=== PATIENT | female | born 1930 | race Caucasian/White ===

== ENCOUNTER 2017-04-19 08:23 | Inpatient (IN) | payer MEDICARE, OTHER ==
[~2017-04-19] VITALS: Ht 157.5 cm; Wt 64.1 kg
[~2017-04-19 08:23] MED LIST: /TIOT18INH INH; ALBU83IN IN; ASPI81TA83 OR; ATROVENT0.02% INH; FISH1000 PO; MAALSUS OR; MILKSUS OR; MIRALEX PO; MULTIVIT PO; SENN8.6T5 OR; TRAM50TA2 OR; TYL RE; [UNRECOGNIZED DRUG - REMARK] PO; aleve PO
[2017-04-19] MEDS ORDERED: NS 500 ML IV ONE (09:15)
[2017-04-19] MEDS ORDERED: ONDANSETRON 4MG/2ML VIAL (J2405) IV ONE (09:15)
[2017-04-19] MEDS ORDERED: methylPREDNISolone INJ 125 MG/2 ML VIAL (J2930) IV ONE (09:15)
[2017-04-19] MEDS ORDERED: IPRATROPIUM 0.5MG/ALBUTEROL 2.5MG INH SOL UD 3ML (DUONEB)(J7620) NEB ONE (09:15)
[2017-04-19] MEDS ORDERED: ALBUTEROL SULFATE 2.5 MG/0.5 ML INH NEB SOLN INH ONE (09:15)
[2017-04-19] MEDS ORDERED: CHLO125TA (09:17)
[2017-04-19] MEDS ORDERED: INCR1INH (09:17)
[2017-04-19 09:38] LABS: ABG BASE EXCESS 1.7 (-2.0-2.0); ABG HCO3 28.3 MEQ/L (22.0-26.0); ABG PARTIAL PRESSURE CO2 51.4 mmHg (35.0-45.0); ABG PARTIAL PRESSURE O2 112.3 mmHg (75.0-100.0); ABG TOTAL CO2 29.9 MEQ/L (23.0-31.0); ABG pH (ARTERIAL) 7.359 UNITS (7.350-7.450)
[2017-04-19 09:59] LABS: BASO # 0.1 K/mm3 (0.0-0.2); BASO % 0.7 % (0.0-1.0); EOS # 0.1 K/mm3 (0.0-0.50); EOS % 0.7 % (0.0-3.0); LARGE UNSTAINED CELL # 0.2 K/mm3 (0.0-0.4); LARGE UNSTAINED CELL % 1.3 % (0.0-4.0); LYMPH # 1.7 K/mm3 (1.5-4.5); LYMPH % 15.5 % (24.0-44.0); MEAN CORPUSCULAR HEMOGLOBIN 33.4 pg (27.0-33.0); MEAN CORPUSCULAR HGB CONC 33.9 g/dl (32.0-36.5); MEAN CORPUSCULAR VOLUME 98.7 fl (80.0-96.0); MONO # 0.6 K/mm3 (0.0-0.8); MONO % 5.2 % (0.0-5.0); NEUTROPHILS # 8.4 K/mm3 (1.8-7.7); NEUTROPHILS % 76.6 % (36.0-66.0); PLATELET COUNT, AUTOMATED 192 k/mm3 (150-450); RED CELL DISTRIBUTION WIDTH 12.6 % (11.5-14.5)
[2017-04-19 10:21] LABS: INR 0.94
--- NOTE | 2017-04-19 10:21 | REP ---
AP portable chest: 04/19/2017 at 9:45 a.m. Comparison PA chest with left rib series 12/19/2015, chest x-ray 08/22/2005. Clinical history: Dyspnea and cough. Lungs are hyperinflated with changes of COPD. There is cardiomegaly, bilateral effusions and basilar patchy atelectasis or infiltrates left greater than right and left diaphragm is not well seen because of that consolidative change and/or effusion. Pulmonary arteries are prominent centrally consistent with some pulmonary hypertension. There is venous hypertension but no juan edema. Calcified tortuous aorta unchanged. Airway intact. Bones demineralized. Impression: 1. Cardiomegaly with venous hypertension and bilateral effusions. There is no juan edema. The fibrosis may obscure early interstitial edema. 2. Bibasilar patchy atelectasis or infiltrates left greater than right. Signed by Cornel Palencia MD 04/19/2017 09:16 P
[2017-04-19] MEDS ORDERED: COLA100C5 PO (10:23)
[2017-04-19] MEDS ORDERED: PROAAER10 INH (10:23)
[2017-04-19] MEDS ORDERED: INCR1INH INH (10:23)
[2017-04-19] MEDS ORDERED: ASPI1TAB PO (10:23)
[2017-04-19] MEDS ORDERED: ACET1TAB17 PO (10:23)
[2017-04-19] MEDS ORDERED: CHLO25TA PO (10:23)
[2017-04-19] MEDS ORDERED: VITMTA PO (10:23)
[2017-04-19 10:24] LABS: ALBUMIN 3.5 GM/DL (3.2-5.2); ALBUMIN/GLOBULIN RATIO 1.13 (1.00-1.93); ALKALINE PHOSPHATASE 93 U/L (45-117); ALT/SGPT 14 U/L (12-78); AMYLASE 24 U/L (25-115); ANION GAP 11 MEQ/L (8-16); AST/SGOT 16 U/L (15-37); BILIRUBIN,DIRECT 0.1 MG/DL (0.0-0.2); BILIRUBIN,TOTAL 0.4 MG/DL (0.2-1.0); BLOOD UREA NITROGEN 19 MG/DL (7-18); CALCIUM LEVEL 9.6 MG/DL (8.8-10.2); CARBON DIOXIDE LEVEL 29 MEQ/L (21-32); CHLORIDE LEVEL 102 MEQ/L (98-107); GLOMERULAR FILTRATION RATE > 60.0 (>32); GLUCOSE, FASTING 154 MG/DL (83-110); POTASSIUM SERUM 3.2 MEQ/L (3.5-5.1); SODIUM LEVEL 142 MEQ/L (136-145); TOTAL PROTEIN 6.6 GM/DL (6.4-8.2)
[2017-04-19] MEDS ORDERED: AZITHROMYCIN INJ 500 MG, VIAL MATE ADAPTER 1 EACH in D5W 250 ML IV ONE (10:30)
[2017-04-19] MEDS ORDERED: cefTRIAXone SOD 1 GM in D5W MINI-BAG PLUS 50 ML IV ONE (10:30)
[2017-04-19] MEDS ORDERED: ISOVUE-370 76% 100ML VIAL (Q9967) As Ordered ONE (10:54)
--- NOTE | 2017-04-19 11:47 | REP ---
CT of the chest CT pulmonary angio protocol with IV contrast: There are no emboli in the pulmonary trunk or in the central pulmonary arteries. There are no emboli in the lobe or segment branches. There is dependent atelectasis in the posterior lung guzmán bilaterally with the patient supine on the scanning table para There is a mosaic pattern in the lung guzmán bilaterally. Numerous small bulla are scattered throughout the lung guzmán bilaterally compatible with bullous emphysema. No definite focal infiltrates are identified. No pleural effusions are identified. The thoracic aorta is unremarkable except for occasional calcified atheroma. There is no hilar adenopathy. There is no axillary adenopathy. Cardiac size is enlarged. There is no pericardial effusion. Within the visualized upper abdomen there is a gallbladder calculus. There is a renal cortical cyst of the left renal upper pole. Impression: There are no pulmonary emboli. There are no definite focal infiltrates or effusions. There is dependent atelectasis in the posterior lung guzmán. There are numerous bulla throughout the lung guzmán bilaterally. There is a mosaic pattern in the lung guzmán compatible with chronic lung disease. There is cardiomegaly without pericardial effusion. There is a 12 mm lung nodule in the lateral segment of the right middle lobe , unchanged from 12/02/2005, likely a granuloma. Signed by Aravind Garcia MD 04/19/2017 11:38 A
--- NOTE | 2017-04-19 11:51 | REP ---
CT ABDOMEN PELVIS WITH IV CONTRAST: 04/19/2017 CLINICAL HISTORY: Abdominal pain. TECHNIQUE: Bolus of 1 mL Isovue 370 and scanning through the abdomen and pelvis with coronal and sagittal reconstructions provided. CT ABDOMEN: The lung bases show dependent atelectasis and fibrosis. Small nodules could certainly be obscured posteriorly and there is a tiny solid nodule in the anterior right base up to 7 mm on image 5. The heart is enlarged with left atrial and ventricular enlargement but there is no pericardial thickening or effusion. There is a small hiatal hernia. There is some coronary artery calcifications and descending thoracic aortic calcification without aneurysm or dissection. There is no hepatomegaly with slight elevation of the right diaphragm. There is no splenomegaly or focal splenic lesion. No hepatic biliary dilatation. Gallbladder shows a small calcification dependent portion measuring about 4.6 mm representing a gallstone. No biliary dilatation. Visualized pancreas shows no mass or ductal dilatation. There is some fatty atrophy of the pancreatic head region and the adrenal glands without mass. The kidneys show exophytic cysts off both upper poles with lobation. An extrarenal pelvis is noted. Calcifications in the lower pole on the left are noted and small; the larger about 4 mm. No hydronephrosis or hydroureter. Extrarenal pelves are seen. Small bowel loops grossly intact. Colon shows collapse on the right and transverse colon to the splenic flexure and this may reflect some mild colitis with thickening of the wall. I do not see diverticulosis or diverticulitis in the abdominal portion of right and transverse colon. The left colon does not show significant change of the wall or evidence for colitis. A few scattered diverticula without diverticulitis noted. Small bowel loops grossly intact. Lung window review of all CT slices shows no perforation or abscess. Abdominal aorta shows an infrarenal abdominal aneurysm. There is circumferential eccentric plaque. Maximum AP diameter 3.8 cm. There is no evidence of an aneurysm leak. There are calcifications in both proximal renal arteries and at the origins of the SMA and celiac axis. Lung window review shows no perforation or free air in the abdomen or pelvis. The bone windows show degenerative disc change and vacuum phenomena at L4-5 and L5-S1 with lesser degenerative changes in the other lumbar and lower thoracic levels. There is no spondylolysis or spondylolisthesis. Visualized ribs intact. CT PELVIS: The patient is status post ORIF right hip with a threaded femoral nail not extending beyond the articular surface of the femoral head . Advanced degenerative changes of the hips with narrowing of the joint space, rim osteophytes and the change is greater right than left. However, no acute fracture of the hips. The pelvis along the sacrum are grossly intact. Bladder well filled and without wall thickening, stone or mass. There is no ventral or inguinal hernia nor pathologic sized inguinal adenopathy. Small bowel loops grossly intact. The distal left colon, sigmoid and rectum are grossly intact without acute finding. IMPRESSION: 1. There is about a 4.6 mm calcified gallstone in the dependent gallbladder without biliary dilatation, common duct dilatation or inflammatory change of the pancreas. 2. Liver, spleen and adrenal glands along the pancreas without acute finding. There is fatty atrophy of the pancreatic head. 3. No biliary dilatation or ascites. I see no pathologic sized periaortic or retroperitoneal lymphadenopathy. 4. 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 No evidence of leak or dissection. There is heavy atherosclerotic calcifications. 5. Collapse with wall thickening of the right and transverse colon that may reflect some colitis. I do not see diverticulitis in the left colon and rectosigmoid and the kidneys. 6. The liver, spleen and adrenal glands are unremarkable. No pelvic mass. Uterus absent. Signed by Cornel Palencia MD 04/19/2017 09:18 P
[2017-04-19] MEDS ORDERED: ONDANSETRON 4MG/2ML VIAL (J2405) IV PRN (14:30)
[2017-04-19] MEDS ORDERED: LevoFLOXacin IV 500 MG in APPROPRIATE DILUENT 1 EA IV ONE (15:00)
[2017-04-19 15:15] VITALS: BP 132/70
[2017-04-19] MEDS: ASPIRIN 81 MG CHEW TABLET PO SCH (16:05)
[2017-04-19] MEDS: POTASSIUM CHLORIDE INJ 40 MEQ in NS 0.45% 1,000 ML IV SCH (17:22)
[2017-04-19 18:00] VITALS: BP 141/67
--- NOTE | 2017-04-19 18:26 | ECGEPIP ---
Stationary ECG Study [facility] - ED Test Date: 2017-04-19 Pat Name: February Department: Room: - Gender: F Medical Technicians: katya : 1930 Requested By: Raymond Hung Order Number: [id number] Reading MD: Billy Fernando Measurements Intervals [place] Rate: 82 P: 42 MO: 252 QRS: -26 QRSD: 105 T: 70 QT: 441 QTc: 516 Interpretive Statements SINUS RHYTHM WITH FIRST DEGREE AV BLOCK BORDERLINE LEFT AXIS DEVIATION MINIMAL VOLTAGE CRITERIA FOR LVH, CONSIDER NORMAL VARIANT ST DEVIATION AND MODERATE T-WAVE ABNORMALITY, CONSIDER ANTEROLATERAL ISCHEMIA SIMILAR TO 09/17/13 Electronically Signed On 04-19-2017 18:26:36 EDT by Billy Fernando
[2017-04-19] MEDS ORDERED: KCL 10MEQ IN 100ML SWI (KRUN) 10 MEQ in APPROPRIATE DILUENT 1 EA IV ONE ×4 (20:15→21:15)
[2017-04-19] MEDS: ENOXAPARIN 30 MG/0.3 ML SYR (J1650) SC SCH (20:30)
[2017-04-19] MEDS: ACETAMINOPHEN 325 MG TAB PO PRN (20:30)
[2017-04-19] MEDS: IPRATROPIUM 0.5MG/ALBUTEROL 2.5MG INH SOL UD 3ML (DUONEB)(J7620) NEB SCH (20:37)
[2017-04-19 22:00] VITALS: BP 132/63
[2017-04-20 02:00] VITALS: BP 134/66
[2017-04-20] MEDS: POTASSIUM CHLORIDE INJ 40 MEQ in NS 0.45% 1,000 ML IV SCH ×2 (04:32→08:29)
--- NOTE | 2017-04-20 05:07 | HPE ---
DATE OF ADMISSION: 04/19/2017 CHIEF COMPLAINT: Increased work of breathing times 1 day. HISTORY OF PRESENT ILLNESS: This is an 87-year-old white female patient of Dr. Nicho Koch who presents at [facility] ([facility]) Emergency Room (ER), who, upon awaking this morning, had a productive cough with purulent sputum with increased dyspnea. The cough was persistent to the point that it seems that she had posttussive emesis with possible aspiration; although, upon further questioning, the patient states she has not coughed again in the last 2 hours and her dyspnea is now back to baseline. She denies any fevers, chills. She denies any chest pain or palpitations or orthopnea, paroxysmal nocturnal dyspnea (PND), or increased edema. She denies any abdominal pain, nausea, nor vomiting. She has been nothing by mouth since arriving. She states she is hungry and would like to eat. She denies any diarrhea. She denies any recent sick contacts nor recent change of medications. PAST MEDICAL HISTORY: Hospitalizations: None recently. Illnesses: 1. Chronic obstructive pulmonary disease (COPD). 2. Osteopenia. 3. Lumbar degenerative joint disease (DJD). 4. 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 5. Constipation, chronic. 6. Mild cognitive impairment. 7. Hypertension. MEDICATIONS: Per [employer] (eCW) confirmed with patient are: - Mucinex 600 mg twice a day as needed - Colace 100 mg daily as needed - acetaminophen 325 mg every 6 hours as needed - ProAir two puffs every 4 hours as needed - Incruse Ellipta one puff daily - aspirin 81 mg by mouth daily - chlorthalidone 12.5 mg daily - multivitamin one tablet by mouth daily ALLERGIES: No known drug allergies. SURGICAL HISTORY: Status post right open reduction and internal fixation (ORIF), hysterectomy, cataract repair. SOCIAL HISTORY: Patient is a resident of [facility]. She is DO NOT RESUSCITATE/DO NOT INTUBATE per Medical Orders for Life-Sustaining Treatment (MOLST) from the chart signed by the patient and Roya Toscano. REVIEW OF SYSTEMS: CONSTITUTIONAL: No weight loss, night sweats. VISION: No diplopia, scotoma. EAR, NOSE, AND THROAT (ENT): No epistaxis or hoarseness. CARDIOVASCULAR: No chest pain nor palpitations. PULMONARY: Dyspnea as above. GASTROINTESTINAL (GI): No odynophagia, melena, hematochezia. GENITOURINARY (): No dysuria, hematuria. DERMATOLOGIC: No rash. ENDOCRINE: No polydipsia or pyuria. RHEUMATOLOGIC: No joint or tendon pain. NEUROLOGIC: No paresthesia or weakness. PHYSICAL EXAM: 98.5, 85, 18, 122/82, 98% on 3 liters nasal cannula. GENERAL: Patient is alert and oriented times two, in no acute distress. HEAD: Is normocephalic, atraumatic. EARS: Tympanic membranes (TMs) are normal bilaterally. EYES: Clear conjunctivae. NOSE: Without discharge. THROAT: Clear oropharynx. NECK: Without adenopathy or thyromegaly. CARDIOVASCULAR: Is regular rate and rhythm with 2/6 systolic ejection murmur, loudest at upper left sternal border, and no jugular venous distension (JVD). RESPIRATORY: Has decreased breath sounds bilateral. Coarse bibasilar rales, louder in right base. ABDOMEN: Nontender, nondistended. Positive bowel sounds. No hepatosplenomegaly. EXTREMITIES: No cyanosis, clubbing, edema. NEUROLOGIC: Is nonfocal. INVESTIGATIONS: Show WBC of 11.0, hemoglobin and hematocrit of 16.7 and 49.4, platelets of 192. PT, PTT of 13 and 26, respectively. Sodium 142, potassium 3.2, bicarbonate of 29, BUN 19, creatine of 0.8, lactic acid 1.5. AST, ALT, alkaline phosphatase of 16, 14, 93, respectively. CK of 45, troponin I of 0.02. Amylase, lipase of 24 and 67, respectively. BNP of 174. Urinalysis (UA) showed 8 WBCs, 3+ bacteria. CTA of the chest shows no pulmonary embolism (PE), no definitive infiltrate, numerous bilateral bullae, cardiomegaly without pericardial effusion. CT abdomen and pelvis shows a 4.6 mm calcified gallstone in dependent gallbladder without biliary dilatation or common bile duct (CBD) dilatation nor pancreatic inflammation, abdominal aortic aneurysm (AAA) of 3.9 cm, possible right transverse colon colitis. EKG 04/19/2017 at 0925 hours shows normal sinus rhythm at 82 beats per minute, first-degree atrioventricular (AV) block, borderline left axis deviation (LAD), LVH with anterior lateral repolarization abnormalities more pronounced compared with most recent EKG from 09/17/2013. ASSESSMENT: This is an 87-year-old white female with increased dyspnea, productive cough, purulent sputum with probable posttussive emesis +/- aspiration pneumonia with abnormal EKG and hypokalemia. PLAN: 1. Pulmonary. Will admit the patient to [facility] medical/surgical bed. Place on Levaquin, renally dosed, for possible aspiration pneumonia. Will start DuoNebs every 6 hours straight given she is on Anoro Ellipta at home and titrate oxygen to keep saturations mid 90s given this is her baseline on no oxygen. 2. Fluids, electrolytes, and nutrition (FEN). Would advance the patient's diet to clears. Will give potassium (K) runs times two. Place on IV fluids at maintenance. Advance her diet as tolerated. 3. Cardiovascular. Will hold the patient's home dose of chlorthalidone given her hypokalemia and normal pressures, probable mild dehydration. Will repeat EKG and electrolytes in the morning. 4. GI. The patient's abdomen is nontender. She wishes to attempt advancing her diet despite the fact that she has a gallstone. I feel this is most likely asymptomatic and chronic. Will follow closely. 5. Deep venous thrombosis (DVT) prophylaxis. Will place on renal-dosed Lovenox. DISPOSITION: Will honor patient's home DO NOT RESUSCITATE/DO NOT INTUBATE. Will consult physical therapy (PT) for evaluation and treatment.
[2017-04-20 06:00] VITALS: BP 140/66
[2017-04-20 06:10] LABS: EOS % 0.1 % (0.0-3.0); LARGE UNSTAINED CELL # 0.1 K/mm3 (0.0-0.4); LARGE UNSTAINED CELL % 0.8 % (0.0-4.0); LYMPH # 1.2 K/mm3 (1.5-4.5); LYMPH % 9.9 % (24.0-44.0); MEAN CORPUSCULAR HEMOGLOBIN 33.5 pg (27.0-33.0); MEAN CORPUSCULAR HGB CONC 33.7 g/dl (32.0-36.5); MEAN CORPUSCULAR VOLUME 99.3 fl (80.0-96.0); MONO # 0.6 K/mm3 (0.0-0.8); MONO % 4.9 % (0.0-5.0); NEUTROPHILS # 9.6 K/mm3 (1.8-7.7); NEUTROPHILS % 84.3 % (36.0-66.0); PLATELET COUNT, AUTOMATED 177 k/mm3 (150-450); RED CELL DISTRIBUTION WIDTH 12.9 % (11.5-14.5); WHITE BLOOD COUNT 11.4 K/mm3 (4.0-10.0)
[2017-04-20 06:30] LABS: ALBUMIN 2.8 GM/DL (3.2-5.2); ALKALINE PHOSPHATASE 68 U/L (45-117); ALT/SGPT 12 U/L (12-78); ANION GAP 8 MEQ/L (8-16); AST/SGOT 16 U/L (15-37); BILIRUBIN,TOTAL 0.3 MG/DL (0.2-1.0); BLOOD UREA NITROGEN 17 MG/DL (7-18); CALCIUM LEVEL 8.4 MG/DL (8.8-10.2); CARBON DIOXIDE LEVEL 29 MEQ/L (21-32); CHLORIDE LEVEL 100 MEQ/L (98-107); CREATININE FOR GFR 0.76 MG/DL (0.55-1.02); GLOMERULAR FILTRATION RATE > 60.0 (>32); GLUCOSE, FASTING 128 MG/DL (83-110); MAGNESIUM LEVEL 1.6 MG/DL (1.8-2.4); POTASSIUM SERUM 4.2 MEQ/L (3.5-5.1); SODIUM LEVEL 137 MEQ/L (136-145); TOTAL PROTEIN 5.9 GM/DL (6.4-8.2)
[2017-04-20] MEDS: IPRATROPIUM 0.5MG/ALBUTEROL 2.5MG INH SOL UD 3ML (DUONEB)(J7620) NEB SCH ×4 (07:45→20:53)
[2017-04-20] MEDS: ASPIRIN 81 MG CHEW TABLET PO SCH (08:28)
[2017-04-20 10:00] VITALS: BP 126/65
--- NOTE | 2017-04-20 11:50 | IPNPDOC ---
Subjective Date Seen The patient was seen on 04/20/17. Subjective Chief Complaint/HPI The patient is a 87-year-old female admitted with a reason for visit of Pneumonia. Events since last encounter Pt States that she is really feeling quite well this morning. She states that her breathing is close to baseline. She denies CP. She has no new concerns. 04/20 PT safe to return to [place] General: Denies: Fatigue Constitutional: Denies: Chills, Fever Pulmonary: Denies: Dyspnea, Cough Cardiovascular: Denies: Chest Pain, Palpitations Gastrointestinal: Denies: Nausea, Vomiting, Diarrhea Psych: Reports: Mood Normal Objective Physical Examination General Exam: Positive: Alert, No Acute Distress ENT Exam: Positive: Mucous membr. moist/pink Neck Exam: Positive: Supple, Negative: JVD Chest Exam: Positive: Clear to auscultation, Diminished Heart Exam: Positive: Rate Normal, Normal S1, Normal S2 Abdomen Exam: Positive: Normal bowel sounds, Soft, Negative: Tenderness Extremity Exam: Negative: Edema Assessment /Plan Problems (1) Elevated troponin Status: Acute Discussed With: Patient Problem Specific Plan: Monitor Clinically, Repeat Labs Problem Text: Pt asymptomatic favor 2 hypotension/hypoxia on admission Trop on admission was 0.02, increase to 0.15, now peaking at 0.23 04/20/17 EKG with diffuse repolarization abnormalities-stable c/w 04/19/17, but new c/w previous EKG 04/20 TTE P Cont with ASA 81 mg daily, pressures stable. (2) Dyspnea Status: Chronic Response to Treatment: Stable Problem Specific Plan: Monitor Clinically Problem Text: She reports being at baseline in terms of her resp status, will attempt to wean her O2. On IV levaquin. (3) COPD (chronic obstructive pulmonary disease) Status: Chronic Response to Treatment: Stable Problem Specific Plan: Consult Specialist, Monitor Clinically Problem Text: +/- aspiration pneumonitis/PN D2 levofloxacin-renal dosed Cont with nebs, uses Incruse Ellipta as outpt. 04/19 BCX - x 2 Plan/VTE VTE Prophylaxis Ordered?: Yes VS, I&O, 24H, Fishbone Vital Signs/I&O Vital Signs Date Time Temp Pulse Resp B/P (MAP) Pulse Ox O2 Delivery O2 Flow Rate FiO2 04/20/17 11:37 Nasal Cannula 1.0 04/20/17 10:00 97.2 89 18 126/65 (85) 97 04/19/17 10:14 97 I&O- Last 24 Hours up to 6 AM 04/20/17 06:00 Intake Total 1765 ml Output Total 351 ml Balance 1414 ml Laboratory Data 24H LABS Laboratory Tests 2 04/19/17 17:24: Bedside Glucose (Misc Panel) 199H 04/20/17 05:32: White Blood Count 11.4H, Red Blood Count 4.34, Hemoglobin 14.5#, Hematocrit 43.1 , Mean Corpuscular Volume 99.3H, Mean Corpuscular Hemoglobin 33.5H, Mean Corpuscular Hemoglobin Concent 33.7, Red Cell Distribution Width 12.9, Platelet Count 177, Neutrophils (%) (Auto) 84.3H, Lymphocytes (%) (Auto) 9.9L, Monocytes (%) (Auto) 4.9, Eosinophils (%) (Auto) 0.1, Basophils (%) (Auto) 0.0, Neutrophils # (Auto) 9.6H, Lymphocytes # (Auto) 1.2L, Monocytes # (Auto) 0.6, Eosinophils # (Auto) 0.0, Basophils # (Auto) 0.0, Large Unclassified Cells % 0.8 , Large Unclassified Cells # 0.1, Anion Gap 8, Glomerular Filtration Rate > 60.0 , Blood Urea Nitrogen 17, Creatinine 0.76, Sodium Level 137, Potassium Level 4.2 #, Chloride Level 100, Carbon Dioxide Level 29, Calcium Level 8.4L, Aspartate Amino Transf (AST/SGOT) 16, Alanine Aminotransferase (ALT/SGPT) 12, Alkaline Phosphatase 68, Total Bilirubin 0.3, Total Protein 5.9L, Albumin 2.8L, Magnesium Level 1.6L, Troponin I 0.15#H, Albumin/Globulin Ratio 0.90L CBC/BMP Laboratory Tests 04/20/17 05:32 Red Blood Count 4.34, Mean Corpuscular Volume 99.3 H, Mean Corpuscular Hemoglobin 33.5 H, Mean Corpuscular Hemoglobin Concent 33.7, Red Cell Distribution Width 12.9, Neutrophils (%) (Auto) 84.3 H, Lymphocytes (%) (Auto) 9.9 L, Monocytes (%) (Auto) 4.9, Eosinophils (%) (Auto) 0.1, Basophils (%) (Auto ) 0.0, Neutrophils # (Auto) 9.6 H, Lymphocytes # (Auto) 1.2 L, Monocytes # (Auto ) 0.6, Eosinophils # (Auto) 0.0, Basophils # (Auto) 0.0, Calcium Level 8.4 L, Aspartate Amino Transf (AST/SGOT) 16, Alanine Aminotransferase (ALT/SGPT) 12, Alkaline Phosphatase 68, Total Bilirubin 0.3, Total Protein 5.9 L, Albumin 2.8 L Microbiology Microbiology 04/19/17 Blood Culture - Preliminary, Resulted No growth after 24 hours . All specim... 04/19/17 Blood Culture - Preliminary, Resulted No growth after 24 hours . All specim... 04/19/17 Respiratory Virus Panel (PCR) (MICHEL) - Final, Complete 04/19/17 Influenza Virus Type A Antigen - Final, Complete 04/19/17 Influenza Virus Type B Antigen - Final, Complete 04/19/17 Urine Culture, Received Pending LIMA MAGAÑA PA-C Apr 20, 2017 11:50 Hank Hirsch M.D. Apr 20, 2017 17:00
[2017-04-20 14:00] VITALS: BP 142/78
[2017-04-20] MEDS: LevoFLOXacin IV 250 MG in APPROPRIATE DILUENT 1 EA IV SCH (14:29)
--- NOTE | 2017-04-20 16:35 | ECGEPIP ---
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 LA conduction disturbance. First-degree AV block. Left axis deviation. Slow precordial R-wave progression with persistent S waves V5 and V6; Body habitus versus pulmonary disease. Rule out prior septal injury. Diffuse repolarization abnormalities. No change from 04/19/17 Electronically Signed On 04-20-2017 16:34:58 EDT by Aung Rendon
[2017-04-20] MEDS: ENOXAPARIN 30 MG/0.3 ML SYR (J1650) SC SCH (17:51)
[2017-04-20 18:00] VITALS: BP_SYST 138; BP_SYST 143; BP_DIAS 67; BP_DIAS 74
[2017-04-20 22:00] VITALS: BP 131/60
[2017-04-21] VITALS (7 sets, daily range): BP systolic 131–158; BP diastolic 60–77
[2017-04-21] MEDS: ACETAMINOPHEN 325 MG TAB PO PRN (05:42)
[2017-04-21 06:23] LABS: BASO % 0.5 % (0.0-1.0); EOS # 0.1 K/mm3 (0.0-0.50); EOS % 0.7 % (0.0-3.0); LARGE UNSTAINED CELL # 0.1 K/mm3 (0.0-0.4); LARGE UNSTAINED CELL % 1.2 % (0.0-4.0); LYMPH # 2.2 K/mm3 (1.5-4.5); LYMPH % 20.8 % (24.0-44.0); MEAN CORPUSCULAR HEMOGLOBIN 33.6 pg (27.0-33.0); MEAN CORPUSCULAR HGB CONC 33.4 g/dl (32.0-36.5); MEAN CORPUSCULAR VOLUME 100.7 fl (80.0-96.0); MONO # 0.6 K/mm3 (0.0-0.8); MONO % 6.2 % (0.0-5.0); NEUTROPHILS # 6.9 K/mm3 (1.8-7.7); NEUTROPHILS % 70.6 % (36.0-66.0); PLATELET COUNT, AUTOMATED 182 k/mm3 (150-450); RED CELL DISTRIBUTION WIDTH 13.1 % (11.5-14.5); WHITE BLOOD COUNT 9.8 K/mm3 (4.0-10.0)
[2017-04-21 06:30] LABS: ALBUMIN 2.8 GM/DL (3.2-5.2); ALBUMIN/GLOBULIN RATIO 0.93 (1.00-1.93); ALKALINE PHOSPHATASE 63 U/L (45-117); ALT/SGPT 14 U/L (12-78); AST/SGOT 18 U/L (15-37); BILIRUBIN,TOTAL 0.4 MG/DL (0.2-1.0); BLOOD UREA NITROGEN 14 MG/DL (7-18); CALCIUM LEVEL 8.4 MG/DL (8.8-10.2); CARBON DIOXIDE LEVEL 28 MEQ/L (21-32); CHLORIDE LEVEL 108 MEQ/L (98-107); CREATININE FOR GFR 0.77 MG/DL (0.55-1.02); GLOMERULAR FILTRATION RATE > 60.0 (>32); GLUCOSE, FASTING 102 MG/DL (83-110); POTASSIUM SERUM 3.6 MEQ/L (3.5-5.1); TOTAL PROTEIN 5.8 GM/DL (6.4-8.2)
[2017-04-21 06:42] LABS: ANION GAP 8 MEQ/L (8-16)
[2017-04-21 06:46] LABS: SODIUM LEVEL 144 MEQ/L (136-145)
[2017-04-21] MEDS: IPRATROPIUM 0.5MG/ALBUTEROL 2.5MG INH SOL UD 3ML (DUONEB)(J7620) NEB SCH ×4 (07:16→20:14)
--- NOTE | 2017-04-21 09:08 | REP ---
PA and lateral chest: Comparisons are the chest CT dated 04/19/2017, portable chest of 04/19/2017 and PA and lateral views of the chest of 08/22/2050. There is chronic mild interstitial coarsening, unchanged from all prior studies, compatible with chronic lung disease. There is mild effacement right costophrenic angle. This could represent a small right pleural effusion. However, there was no pleural effusion on the recent chest CT of 04/19/2017. There are no focal infiltrates. The cardiac size is enlarged. The deshawn, mediastinum, and bony thorax are unremarkable. Impression: Chronic mild interstitial coarsening compatible with chronic lung disease. Mild effacement of the left costophrenic angle, possibly representing a small right pleural effusion, not present on the chest CT of 04/19/2017. Chronic cardiomegaly. Signed by Aravind Garcia MD 04/21/2017 09:00 A
[2017-04-21] MEDS: ASPIRIN 81 MG CHEW TABLET PO SCH (09:43)
[2017-04-21] MEDS: LevoFLOXacin IV 250 MG in APPROPRIATE DILUENT 1 EA IV SCH (15:11)
--- NOTE | 2017-04-21 15:43 | IPNPDOC ---
Subjective Date Seen The patient was seen on 04/21/17. Subjective Chief Complaint/HPI The patient is a 87-year-old female admitted with a reason for visit of Pneumonia. Events since last encounter I saw Ms. Buckley this morning - at that time, she was c/o upper abdominal pain which she felt was due to not eating, and she was requesting at diet order. Otherwise, she had no complaints. Constitutional: Denies: Chills, Fever ENT: Denies: Head Aches Skin: Denies: Rash Pulmonary: Denies: Dyspnea, Cough Cardiovascular: Denies: Chest Pain, Palpitations Gastrointestinal: Reports: Abdominal Pain, Denies: Nausea, Vomiting Neurological: Denies: Weakness, Numbness Objective Physical Examination General Exam: Positive: Alert, No Acute Distress ENT Exam: Positive: Mucous membr. moist/pink Neck Exam: Positive: Supple, Negative: JVD Chest Exam: Positive: Clear to auscultation, Diminished Heart Exam: Positive: Rate Normal, Normal S1, Normal S2 Abdomen Exam: Positive: Normal bowel sounds, Soft, Negative: Tenderness Extremity Exam: Negative: Edema Assessment /Plan Problems (1) Elevated troponin Status: Acute Discussed With: Patient Problem Specific Plan: Monitor Clinically, Repeat Labs Problem Text: Pt remains asymptomatic though troponin is mildly increased today to 0.41. Likely due to underlying lung issue, with possible contribution due to hypotension on admission. Prior notes indicate that TTE is pending, but this does not appear to have been ordered and is not resulted - will order now. 04/20/17 EKG with diffuse repolarization abnormalities-stable c/w 04/19/17, but new c/w previous EKG Cont with ASA 81 mg daily, pressures stable. (2) Dyspnea Status: Chronic Response to Treatment: Stable Problem Specific Plan: Monitor Clinically Problem Text: She reports being at baseline in terms of her respiratory status , and was successfully weaned to room air this afternoon/ On IV levaquin. (3) COPD (chronic obstructive pulmonary disease) Status: Chronic Response to Treatment: Stable Problem Specific Plan: Consult Specialist, Monitor Clinically Problem Text: +/- aspiration pneumonitis/PN D3 levofloxacin Cont with nebs, uses Incruse Ellipta as outpt. 04/19 BCX x 2 negative so far (4) Positive urine culture Problem Text: Urine culture positive for >100,000 E. coli, though patient remains asymptomatic. Regardless, this is sensitive for levofloxacin, which she is on for possible pneumonitis as above. Plan/VTE VTE Prophylaxis Ordered?: Yes VS, I&O, 24H, Elyssa Vital Signs/I&O Vital Signs Date Time Temp Pulse Resp B/P (MAP) Pulse Ox O2 Delivery O2 Flow Rate FiO2 04/21/17 14:00 97.9 85 18 157/77 (103) 96 Room Air 04/21/17 10:00 1.0 04/19/17 10:14 97 I&O- Last 24 Hours up to 6 AM 04/21/17 06:00 Intake Total 2340 ml Output Total 1400 ml Balance 940 ml Laboratory Data 24H LABS Laboratory Tests 2 04/21/17 05:27: White Blood Count 9.8, Red Blood Count 4.29, Hemoglobin 14.4, Hematocrit 43.2, Mean Corpuscular Volume 100.7H, Mean Corpuscular Hemoglobin 33.6H, Mean Corpuscular Hemoglobin Concent 33.4, Red Cell Distribution Width 13.1, Platelet Count 182, Neutrophils (%) (Auto) 70.6H, Lymphocytes (%) (Auto) 20.8L, Monocytes (%) (Auto) 6.2H, Eosinophils (%) (Auto) 0.7, Basophils (%) (Auto) 0.5 , Neutrophils # (Auto) 6.9, Lymphocytes # (Auto) 2.2, Monocytes # (Auto) 0.6, Eosinophils # (Auto) 0.1, Basophils # (Auto) 0.0, Large Unclassified Cells % 1.2 , Large Unclassified Cells # 0.1, Anion Gap 8, Glomerular Filtration Rate > 60.0 , Blood Urea Nitrogen 14, Creatinine 0.77, Sodium Level 144#, Potassium Level 3.6, Chloride Level 108H, Carbon Dioxide Level 28, Calcium Level 8.4L, Aspartate Amino Transf (AST/SGOT) 18, Alanine Aminotransferase (ALT/SGPT) 14, Alkaline Phosphatase 63, Total Bilirubin 0.4, Total Protein 5.8L, Albumin 2.8L, Troponin I 0.41#H, Albumin/Globulin Ratio 0.93L CBC/BMP Laboratory Tests 04/21/17 05:27 Red Blood Count 4.29, Mean Corpuscular Volume 100.7 H, Mean Corpuscular Hemoglobin 33.6 H, Mean Corpuscular Hemoglobin Concent 33.4, Red Cell Distribution Width 13.1, Neutrophils (%) (Auto) 70.6 H, Lymphocytes (%) (Auto) 20.8 L, Monocytes (%) (Auto) 6.2 H, Eosinophils (%) (Auto) 0.7, Basophils (%) ( Auto) 0.5, Neutrophils # (Auto) 6.9, Lymphocytes # (Auto) 2.2, Monocytes # (Auto ) 0.6, Eosinophils # (Auto) 0.1, Basophils # (Auto) 0.0, Calcium Level 8.4 L, Aspartate Amino Transf (AST/SGOT) 18, Alanine Aminotransferase (ALT/SGPT) 14, Alkaline Phosphatase 63, Total Bilirubin 0.4, Total Protein 5.8 L, Albumin 2.8 L Microbiology Microbiology 04/19/17 Blood Culture - Preliminary, Resulted No Growth after 48 hours. All Specime... 04/19/17 Blood Culture - Preliminary, Resulted No Growth after 48 hours. All Specime... 04/19/17 Respiratory Virus Panel (PCR) ([facility]) - Final, Complete 04/19/17 Influenza Virus Type A Antigen - Final, Complete 04/19/17 Influenza Virus Type B Antigen - Final, Complete 04/19/17 Urine Culture - Preliminary, Resulted Escherichia Coli LEANNA ROUSE MD Apr 21, 2017 15:42
[2017-04-21] MEDS: ENOXAPARIN 30 MG/0.3 ML SYR (J1650) SC SCH (17:54)
[2017-04-22] VITALS (8 sets, daily range): BP systolic 114–180; BP diastolic 62–98
[2017-04-22] MEDS: ACETAMINOPHEN 325 MG TAB PO PRN (04:37)
[2017-04-22 06:41] LABS: MEAN CORPUSCULAR HEMOGLOBIN 33.2 pg (27.0-33.0); MEAN CORPUSCULAR HGB CONC 33.9 g/dl (32.0-36.5); RED CELL DISTRIBUTION WIDTH 12.7 % (11.5-14.5)
[2017-04-22] MEDS: IPRATROPIUM 0.5MG/ALBUTEROL 2.5MG INH SOL UD 3ML (DUONEB)(J7620) NEB SCH ×4 (08:13→20:54)
[2017-04-22] MEDS: ASPIRIN 81 MG CHEW TABLET PO SCH (10:03)
--- NOTE | 2017-04-22 11:46 | IPNPDOC ---
Subjective Date Seen The patient was seen on 04/22/17. Subjective Chief Complaint/HPI The patient is a 87-year-old female admitted with a reason for visit of Pneumonia. Events since last encounter Pt this morning is feeling much better. She is more awake and alert, she is feeling eager to get home. General: Reports: Fatigue Constitutional: Denies: Chills, Fever ENT: Denies: Head Aches Pulmonary: Denies: Dyspnea, Cough Cardiovascular: Denies: Chest Pain, Palpitations Gastrointestinal: Denies: Nausea, Vomiting, Diarrhea Neurological: Denies: Weakness Psych: Reports: Mood Normal Objective Physical Examination General Exam: Positive: Alert, No Acute Distress ENT Exam: Positive: Mucous membr. moist/pink Neck Exam: Positive: Supple, Negative: JVD Chest Exam: Positive: Clear to auscultation, Diminished Heart Exam: Positive: Rate Normal, Normal S1, Normal S2 Abdomen Exam: Positive: Normal bowel sounds, Soft, Negative: Tenderness Extremity Exam: Negative: Edema Assessment /Plan Problems (1) Elevated troponin Status: Acute Discussed With: Patient Problem Specific Plan: Monitor Clinically, Repeat Labs Problem Text: patient remains asymptomatic 04/22 added bisoprolol 2.5 BID given SBP 160-170, HR 80-90s (CTD 12.5 held on admission 2 hypotension/hypoK) (obvious caution given COPD and baseline 1 AVB) 04/21 0.4, TTE reordered 04/20/17 EKG with diffuse repolarization abnormalities-stable c/w 04/19/17, but new c/w previous EKG Cont with ASA 81 mg daily, pressures stable. (2) Dyspnea Status: Chronic Response to Treatment: Stable Problem Specific Plan: Monitor Clinically Problem Text: She reports being at baseline in terms of her respiratory status , and was successfully weaned to room air this afternoon/ On IV levaquin. (3) COPD (chronic obstructive pulmonary disease) Status: Chronic Response to Treatment: Stable Problem Specific Plan: Consult Specialist, Monitor Clinically Problem Text: +/- aspiration pneumonitis/PN D3 levofloxacin Cont with nebs, uses Incruse Ellipta as outpt. 04/19 BCX x 2 negative so far (4) Positive urine culture Problem Text: 04/19UCX >100,000 E. coli-sens to levo though patient remains asymptomatic. . (5) Hypertension Status: Chronic Problem Text: rx as per elevated T-I Plan/VTE VTE Prophylaxis Ordered?: Yes Plan PLan for d/c in AM. VS, I&O, 24H, Fishbone Vital Signs/I&O Vital Signs Date Time Temp Pulse Resp B/P (MAP) Pulse Ox O2 Delivery O2 Flow Rate FiO2 04/22/17 05:45 97.6 90 20 168/98 (121) 95 Room Air 04/21/17 10:00 1.0 04/19/17 10:14 97 I&O- Last 24 Hours up to 6 AM 04/22/17 06:00 Intake Total 1280 ml Output Total 100 ml Balance 1180 ml Laboratory Data CBC/BMP Laboratory Tests 04/22/17 05:37 Red Blood Count 4.66, Mean Corpuscular Volume 98.0 H, Mean Corpuscular Hemoglobin 33.2 H, Mean Corpuscular Hemoglobin Concent 33.9, Red Cell Distribution Width 12.7 Microbiology Microbiology 04/19/17 Blood Culture - Preliminary, Resulted No Growth after 72 hours. All specime... 04/19/17 Blood Culture - Preliminary, Resulted No Growth after 72 hours. All specime... 04/19/17 Respiratory Virus Panel (PCR) (MICHEL) - Final, Complete 04/19/17 Influenza Virus Type A Antigen - Final, Complete 04/19/17 Influenza Virus Type B Antigen - Final, Complete 04/19/17 Urine Culture - Final, Complete Escherichia Coli Aerococcus Urinae LIMA MAGAÑA PA-C Apr 22, 2017 11:46 Hank Hirsch M.D. Apr 22, 2017 17:13
[2017-04-22] MEDS ORDERED: LevoFLOXacin 250 MG TABLET PO SCH ×2 (15:00→18:00)
[2017-04-22] MEDS: ENOXAPARIN 30 MG/0.3 ML SYR (J1650) SC SCH (17:54)
[2017-04-22] MEDS: BISOPROLOL FUM 2.5 MG PER 1/2TAB PO SCH (20:08)
[2017-04-23 02:00] VITALS: BP 169/77
[2017-04-23 05:50] LABS: BASO % 0.6 % (0.0-1.0); EOS # 0.2 K/mm3 (0.0-0.50); EOS % 2.3 % (0.0-3.0); LARGE UNSTAINED CELL # 0.1 K/mm3 (0.0-0.4); LARGE UNSTAINED CELL % 1.8 % (0.0-4.0); LYMPH # 2.8 K/mm3 (1.5-4.5); LYMPH % 34.2 % (24.0-44.0); MEAN CORPUSCULAR HEMOGLOBIN 33.5 pg (27.0-33.0); MEAN CORPUSCULAR HGB CONC 34.2 g/dl (32.0-36.5); MEAN CORPUSCULAR VOLUME 97.9 fl (80.0-96.0); MONO # 0.6 K/mm3 (0.0-0.8); MONO % 7.5 % (0.0-5.0); NEUTROPHILS # 4.1 K/mm3 (1.8-7.7); NEUTROPHILS % 53.4 % (36.0-66.0); PLATELET COUNT, AUTOMATED 176 k/mm3 (150-450); WHITE BLOOD COUNT 7.7 K/mm3 (4.0-10.0)
[2017-04-23 06:00] VITALS: BP 110/80
[2017-04-23 06:17] LABS: ALBUMIN 2.7 GM/DL (3.2-5.2); ALBUMIN/GLOBULIN RATIO 0.93 (1.00-1.93); ALKALINE PHOSPHATASE 71 U/L (45-117); ALT/SGPT 14 U/L (12-78); ANION GAP 10 MEQ/L (8-16); AST/SGOT 17 U/L (15-37); BILIRUBIN,TOTAL 0.6 MG/DL (0.2-1.0); BLOOD UREA NITROGEN 12 MG/DL (7-18); CALCIUM LEVEL 8.8 MG/DL (8.8-10.2); CARBON DIOXIDE LEVEL 27 MEQ/L (21-32); CHLORIDE LEVEL 106 MEQ/L (98-107); CREATININE FOR GFR 0.71 MG/DL (0.55-1.02); GLOMERULAR FILTRATION RATE > 60.0 (>32); GLUCOSE, FASTING 98 MG/DL (83-110); POTASSIUM SERUM 3.5 MEQ/L (3.5-5.1); SODIUM LEVEL 143 MEQ/L (136-145); TOTAL PROTEIN 5.6 GM/DL (6.4-8.2)
[2017-04-23] MEDS: IPRATROPIUM 0.5MG/ALBUTEROL 2.5MG INH SOL UD 3ML (DUONEB)(J7620) NEB SCH (08:00)
[2017-04-23 09:58] VITALS: BP 110/80
[2017-04-23] MEDS: BISOPROLOL FUM 2.5 MG PER 1/2TAB PO SCH (09:58)
[2017-04-23] MEDS: ASPIRIN 81 MG CHEW TABLET PO SCH (09:59)
[2017-04-23 10:00] VITALS: BP 125/62
[2017-04-23] MEDS ORDERED: BISO5TAB5 PO (10:11)
[2017-04-23] MEDS ORDERED: LEVA1TAB PO (10:11)
--- NOTE | 2017-04-25 08:38 | DSES ---
DATE OF ADMISSION: 04/19/2017 DATE OF DISCHARGE: 04/23/2017 PRIMARY CARE PROVIDER: Dr. Nicho Koch ATTENDING: Dr. Hank Hirsch HISTORY: This is an 87-year-old female patient who presented to [facility] emergency room from [facility] with increasing shortness of breath and productive sputum. She was evaluated in the emergency room and felt to have a possible aspiration pneumonia. She was started on DuoNebs as well as Levaquin. She was given some IV fluids. Her chlorthalidone was held secondary to hypokalemia. During her hospitalization, she has remained medically stable. Her respiratory status has improved. Her mentation has also improved. She has been successfully weaned off from oxygen. Her white blood cell count has normalized. Her potassium has also normalized. She did have a bump in her troponin, although she has been asymptomatic. She was started on a beta mikaela secondary to mildly elevated blood pressures and this elevation in her troponin during her hospitalization. DISCHARGE DIAGNOSES: 1. Dyspnea, likely secondary to aspiration pneumonia. 2. Chronic obstructive pulmonary disease (COPD). 3. Positive urine culture, although asymptomatic. E. Coli was sensitive to Levaquin. 4. Hypertension. DISCHARGE MEDICATIONS: - Levaquin 250 mg daily times seven days - bisoprolol 2.5 mg twice daily - acetaminophen 325 mg daily as needed for pain - albuterol sulfate 2 puffs inhaled every 6 hours as needed for shortness of breath - aspirin 81 mg daily - docusate sodium 100 mg by mouth daily as needed for constipation - Incruse Ellipta 1 puff daily - multivitamin 1 tablet daily DISCHARGE PLAN: To follow up with Dr. Koch in one week. Her activity should be as tolerated. Her diet should be no added salt.
== END 2017-04-23 11:30 | DRG 179 ==
LOC: M ED 08:23 → EDBD 08:23 → M ED INP 14:18 → M MSPAV 15:14
PROVIDERS: ADMIT Family Medicine; ATTEND Family Medicine
DX: J69.0 Pneumonitis due to inhalation of food and vomit (principal); E87.6 Hypokalemia; J44.9 Chronic obstructive pulmonary disease, unspecified; I10 Essential (primary) hypertension; B96.29 Other Escherichia coli [E. coli] as the cause of diseases classified elsewhere; Z79.899 Other long term (current) drug therapy; Z79.82 Long term (current) use of aspirin; Z86.73 Personal history of transient ischemic attack (TIA), and cerebral infarction without residual deficits; K59.00 Constipation, unspecified; Z66 Do not resuscitate

== ENCOUNTER → 2017-05-12 | Outpatient (REF) | payer MEDICARE, OTHER ==
[~2017-05-12] MED LIST changes: +ACET1TAB17 PO; +ASPI1TAB PO; +BISO5TAB5 PO; +CHLO125TA; +CHLO25TA PO; +COLA100C5 PO; +INCR1INH; +INCR1INH INH; +LEVA1TAB PO; +PROAAER10 INH; +VITMTA PO
== END ==
LOC: M LAB REF 11:45
PROVIDERS: ATTEND Nurse Practitioner Family
DX: R35.0 Frequency of micturition (principal)

== ENCOUNTER → 2017-05-17 | Outpatient (REF) | payer MEDICARE, OTHER ==
[2017-05-17 19:01] LABS: ANION GAP 10 MEQ/L (8-16); BLOOD UREA NITROGEN 11 MG/DL (7-18); CALCIUM LEVEL 9.1 MG/DL (8.8-10.2); CARBON DIOXIDE LEVEL 29 MEQ/L (21-32); CHLORIDE LEVEL 103 MEQ/L (98-107); CREATININE FOR GFR 0.85 MG/DL (0.55-1.02); GLOMERULAR FILTRATION RATE > 60.0 (>32); GLUCOSE, FASTING 89 MG/DL (83-110); POTASSIUM SERUM 4.4 MEQ/L (3.5-5.1); SODIUM LEVEL 142 MEQ/L (136-145)
== END ==
LOC: M LAB REF 16:57
PROVIDERS: ATTEND Nurse Practitioner Family
DX: I51.9 Heart disease, unspecified (principal)

== ENCOUNTER → 2017-06-23 | Outpatient (REF) | payer MEDICARE, OTHER ==
[2017-06-23 11:24] LABS: ANION GAP 6 MEQ/L (8-16); BLOOD UREA NITROGEN 12 MG/DL (7-18); CALCIUM LEVEL 8.9 MG/DL (8.8-10.2); CARBON DIOXIDE LEVEL 34 MEQ/L (21-32); CHLORIDE LEVEL 99 MEQ/L (98-107); GLOMERULAR FILTRATION RATE > 60.0 (>32); GLUCOSE, FASTING 97 MG/DL (83-110); MAGNESIUM LEVEL 1.7 MG/DL (1.8-2.4); POTASSIUM SERUM 3.7 MEQ/L (3.5-5.1); SODIUM LEVEL 139 MEQ/L (136-145)
== END ==
PROVIDERS: ATTEND Nurse Practitioner Family
DX: G45.9 Transient cerebral ischemic attack, unspecified (principal); N39.0 Urinary tract infection, site not specified

== ENCOUNTER → 2018-02-07 | Outpatient (REF) | payer MEDICARE, OTHER ==
[2018-02-07 17:36] LABS: VITAMIN B12 LEVEL 586 PG/ML (247-911)
[2018-02-07 17:37] LABS: FOLATE 13.3 NG/ML (>5.4)
[2018-02-07 17:51] LABS: ALBUMIN 3.6 GM/DL (3.2-5.2); ALBUMIN/GLOBULIN RATIO 1.09 (1.00-1.93); ALKALINE PHOSPHATASE 110 U/L (45-117); ALT/SGPT 24 U/L (12-78); ANION GAP 8 MEQ/L (8-16); AST/SGOT 21 U/L (7-37); BILIRUBIN,TOTAL 0.4 MG/DL (0.2-1.0); BLOOD UREA NITROGEN 22 MG/DL (7-18); CALCIUM LEVEL 8.6 MG/DL (8.8-10.2); CARBON DIOXIDE LEVEL 30 MEQ/L (21-32); CHLORIDE LEVEL 104 MEQ/L (98-107); CREATININE FOR GFR 1.11 MG/DL (0.55-1.30); FREE T4 1.04 NG/DL (0.76-1.46); GLOMERULAR FILTRATION RATE 49.3 (>32); GLUCOSE, FASTING 83 MG/DL (70-100); POTASSIUM SERUM 3.7 MEQ/L (3.5-5.1); SODIUM LEVEL 142 MEQ/L (136-145); TOTAL PROTEIN 6.9 GM/DL (6.4-8.2)
[2018-02-13 14:07] LABS: NICOTINAMIDE 8.6 ng/mL (5.2-72.1); NICOTINIC ACID <5.0 ng/mL (0.0-5.0)
== END ==
LOC: M SFHCPLAZ 15:11
DX: F01.50 Vascular dementia, unspecified severity, without behavioral disturbance, psychotic disturbance, mood disturbance, and anxiety (principal); N30.00 Acute cystitis without hematuria; Z79.899 Other long term (current) drug therapy; Z79.82 Long term (current) use of aspirin
CPT/HCPCS: 82746